=== PATIENT | female | born 1990 | race Caucasian/White ===

== ENCOUNTER 2018-08-17 22:28 | Emergency (ER) | payer MEDICAID ==
[~2018-08-17] VITALS: Ht 167.6 cm; Wt 82.0 kg
[2018-08-18] MEDS ORDERED: SODIUM CHLORIDE 0.9% 1,000 ML IV ONE (01:30)
[2018-08-18] MEDS ORDERED: ACETAMINOPHEN 325MG TABLET PO ONE (01:30)
[2018-08-18 02:09] LABS: BASOPHILS % 0.8 % (0.0-2.0); EOSINOPHILS % 0.8 % (0.0-5.0); HEMATOCRIT. 33.5 % (36.0-48.0); HEMOGLOBIN. 10.8 g/dL (12.0-16.0); LYMPHOCYTES % 36.9 % (20.0-50.0); MEAN CORPUSCULAR HEMOGLOBIN 22.2 pg (28.0-32.0); MEAN PLATELET VOLUME 7.8 fl (7.4-10.4); MONOCYTES % 10.3 % (2.0-8.0); NEUTROPHILS % 51.2 % (40.0-76.0); PLATELET 449 x1000/uL (130-400); RED BLOOD CELL COUNT 4.86 mill/uL (4.2-5.4); RED CELL DISTRIBUTION WIDTH 16.4 % (11.6-14.6)
[2018-08-18 02:13] LABS: CHLORIDE 105 mEq/L (98-107)
[2018-08-18 02:26] LABS: B-HCG QUANTITATIVE < 1 mIU/mL (<3)
[2018-08-18 03:21] LABS: PLATELET ESTIMATE SLIGHTLY INCREASED
[2018-08-18] MEDS ORDERED: KETOROLAC 15MG/ML VIAL IV ONE (03:30)
[2018-08-18 04:21] LABS: CLARITY URINE CLEAR (CLEAR); COLOR URINE YELLOW (YELLOW); KETONES URINE NEGATIVE (NEGATIVE); LEUKOCYTE ESTERASE URINE 3+ (NEGATIVE); NITRITE URINE NEGATIVE (NEGATIVE); OCCULT BLOOD URINE 1+ (NEGATIVE); PH URINE 5.5 (4.5-8.0); PROTEIN URINE NEGATIVE (NEGATIVE); SPECIFIC GRAVITY URINE 1.021 (1.005-1.030); UROBILINOGEN URINE 0.2 E.U./dL (0.2-1.0)
[2018-08-18 05:29] VITALS: BP 117/70
== END 2018-08-18 05:41 | disposition home or self-care (01) ==
LOC: ER 22:28
DX: N39.0 Urinary tract infection, site not specified (principal); R42 Dizziness and giddiness; N76.0 Acute vaginitis
CPT/HCPCS: 36415; 76830; 76856; 80053; 81003; 81025; 84702; 85025; 87210; 96361; 96374; 99285; J1885; J7030